=== PATIENT | female | born 1985 | race Caucasian/White ===

== ENCOUNTER 2022-04-02 14:59 | Emergency (ER) | payer BC, SELFPAY ==
[2022-04-02 15:05] VITALS: BP 144/92; PULSE 90; RESP 16; TEMP 36.8; O2SAT 100; BMI 18.1
--- NOTE | 2022-04-02 15:19 | ED_ITS ---
HPI - General Adult General Time Seen by Provider: 15:20 Date Seen: 04/02/22 Chief complaint: Unspecified Complaint, Adult Stated complaint: Varicose Vein-large/hard,lower back pain Time Seen by Provider: 04/02/22 15:07 Source: patient and RN notes reviewed Mode of arrival: ambulatory Limitations: no limitations History of Present Illness HPI narrative: Patient is a 36-year-old female coming in with concern of a hard varicose vein in her left genital area. She notes that she was told that she had varicose veins that developed with her 1st from the pelvic congestion. They went away after after her 2nd the developed again and then went away with delivery. After her 3rd they stated their on the left side. 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 This is where the abdominal aorta and superior mesenteric artery essentially squeeze the left renal vein. She states she has had complications of pelvic congestion and vascular issues because of this. She had noticed some increased low back pain recently. Her boyfriend is in [place] [facility] and she has not seen him nor had any interaction with him. She has had no fevers or chills, no concerning vaginal symptoms, no urinary symptoms. Yesterday when she was in [employer] she states her underwear were askew, she readjusted them and felt a little pain in the area. She was shaving in the perineum today and felt some pain doing it. She felt the left labia area and felt this varicose vein was harder but not necessarily larger. She states she has had this lesion or varicose vein in her perineum for about 15 years. She was told it was a varicose vein by her doctor. Related Data Allergies Allergy/AdvReac Type Severity Reaction Status Date / Time amoxicillin Allergy Severe Anaphylaxis Verified 04/02/22 16:26 clindamycin Allergy Severe Anaphylaxis Verified 04/02/22 16:26 latex Allergy Intermediate Blister Uncoded 04/02/22 16:26 Review of Systems Status of ROS: Reports: 6 or more systems reviewed and unremarkable except as noted in History and below PFSH PFS Social History Smoking Status: Smoker, status unknown Non-prescribed substance use: denies use Exam Const: Vital Signs, click to edit/add: Vital Signs - 24 hr 04/02/22 15:05 Temperature 98.3 F Pulse Rate [Pulse Oximeter] 90 Respiratory Rate 16 Blood Pressure [Ri ght Upper Arm] 144/92 H Pulse Oximetry 100 Oxygen Delivery Me thod Room Air Documenting provider has reviewed patient's vital signs: yes Common normals: no apparent distress, average body habitus, oriented x3, no limitations, healthy appearing, alert and well nourished General appearance: cooperative, comfortable and well kempt Nutritional appearance: thin HENMT: Common normals: normocephalic and head/scalp atraumatic Head and scalp: normocephalic and atraumatic Eye: Common normals: PERRL, EOMs intact bilaterally, conjunctivae normal and no scleral icterus Conjunctiva: conjunctiva(e) normal Pupil: PERRL Resp: Common normals: normal respiratory effort, no retractions, no use of accessory muscles and clear to auscultation bilaterally Auscultation: clear to auscultation bilaterally Cardio: Common normals: regular rate, regular rhythm, S1 normal heart sound, S2 normal heart sound, no gallops, no clicks and no murmurs Rate: regular rate Rhythm: regular rhythm Heart sounds: S1 normal and S2 normal GI: Common normals: Normal to inspection, nondistended, normoactive bowel sounds present, soft to palpation, non-tender, no hepatosplenomegaly and no masses Palpation: soft and no hepatosplenomegaly : Other: She has some bilateral small inguinal adenopathy, nothing even approaching 0.5 mm size. These are not fixed or matted, they are mobile and nontender. External genitalia are normal with the exception you get a faint sense of some fullness along the left posterior labia majora. Overlying the left labia you can see outlying of a darker vein but it is not significantly engorged it is not tender it is not showing any cord-like sense on palpation. At the base of the left labia majora there is about a larger grape size lesion within the labia. It is maybe mildly tender for her, it is firm. This would go along with what I feel is a Bartholin's cyst. There is no overlying erythema of the skin. She is not that extensively tender that I think this is an abscess at this time. Certainly could be a developing abscess but this is smaller. Neuro: Common normals: oriented x3 Sensorium/orientation: alert Psych: Appearance: well kempt Course Course Hospital Course: Reviewed with patient options. We did do a test she did want to go through doing the pelvic CT. She is worried that there could be some abnormal complication of her not cracker syndrome. I certainly think this is reasonable. I did speak with Dr. Chrissy Olmos our on-call OB. She agreed with observation and not draining it at this point. She typically will manage based on pain symptoms or if there is evidence of infection. She stated she could follow-up with the OB Gyne she sees or certainly is welcome to follow-up with them. I discussed options with patient and she would really like to proceed with doing the pelvic CT. Reevaluation(s) Reevaluation #1: Reviewed with patient her CT report. She actually has bilateral cystic lesions that would be consistent with Bartholin gland cyst. She notes that the left 1 has been bothering her with intercourse, bothers her during her menstrual cycle. The left 1 certainly probably has been present for quite some time given her history that she is reporting to me. This time I would recommend warm packs, conservative management with Tylenol and ibuprofen, pelvic rest and follow up with OB Gyne. Time: 17:14 Vital Signs Vital signs: Initial Vital Signs Temperature 98.3 F 04/02/22 15:05 Temperature Source Temporal Artery Scan 04/02/22 15:05 Pulse Rate 90 04/02/22 15:05 Pulse Rhythm 04/02/22 15:05 Respiratory Rate 16 04/02/22 15:05 Blood Pressure 144/92 H 04/02/22 15:05 Blood Pressure Mean 109 04/02/22 15:05 Blood Pressure Position Sitting 04/02/22 15:05 Pulse Oximetry 100 04/02/22 15:05 Oxygen Delivery Method 04/02/22 15:05 Vital Signs Temperature 98.3 F 04/02/22 15:05 Pulse Rate 90 04/02/22 15:05 Respiratory Rate 16 04/02/22 15:05 Blood Pressure 144/92 H 04/02/22 15:05 Pulse Oximetry 100 04/02/22 15:05 Oxygen Delivery Method 04/02/22 15:05 Temperature 98.3 F 04/02/22 15:05 Pulse Rate 90 04/02/22 15:05 Respiratory Rate 16 04/02/22 15:05 Blood Pressure 144/92 H 04/02/22 15:05 Pulse Oximetry 100 04/02/22 15:05 Oxygen Delivery Method 04/02/22 15:05 Medical Decision Making Lab Data Lab results reviewed: Yes I reviewed the patient's lab results Labs: Lab Results 04/02/22 Range/Units 15:40 Urine HCG, Qual Negative (Negative) Imaging Data CT- Other: Attestation: I have reviewed the pertinent imaging results. My impression: On her pelvis CT, I do see bilateral cystic lesions in the posterior labia. Certainly the left 1 is larger than the right. Await Radiology over-read. Radiologist's impression: Patient: CHRISTINE RIVERA Facility:?[facility] Patient ID:?[id number] Site Patient ID:?[id number]. Site :?[id number] Study:?CT Pelvis w/ Contrast-04/02/2022 4:30:17 PM Ordering Physician:Sharon Subramanian Final Report: Indication: Left labial mass. History of nutcracker syndrome. Technique: CT examination of pelvis was performed. Imaging was acquired from the umbilicus through the upper thighs. Imaging was acquired following the intravenous administration of 40 cc of Isovue 370. Sagittal and coronal reformatted imaging was performed. Please note that all CT scans at this facility use dose modulation, iterative reconstruction, and/or weight-based dosing when appropriate to reduce radiation dose to as low as reasonably achievable. Comparison: Every viewed portions of a CT dated March 28, 2018 though this did not include the entirety of the vulvar area Findings: The intrapelvic contents as visualized appear normal. The osseous structures normal. There are complex cystic lesions identified involving both labia at the introitus. The left is larger than the right. The left measures 2.5 by 2.2 x 2.3 centimeters containing internal debris. The right is substantially smaller and less complex measuring about 1.6 x 1.6 x 1.3 centimeters. There are several possible lesions that can occur in this area though the most likely is a Bartholin`s cyst. When complex, these are often infected. Impression: Bilateral complex cystic lesions associated with the labia at the enteritis as described. These are most likely Bartholin`s cysts. When complex, these are often currently or previously infected. Follow-up evaluation of these lesions is generally performed clinically. Please note that all CT scans at this facility use dose modulation, iterative reconstruction, and/or weight-based dosing when appropriate to reduce radiation dose to as low as reasonably achievable. Dictated by Ravindra Martin MD @ 04/02/2022 4:59:11 PM (Electronic Signature) Critical Care Time Critical Care Time Critical Care Time: No Discharge Plan Discharge Clinical Impression: Cyst of left Bartholin's gland, Cyst of right Bartholin's gland Condition: Stable Instructions: Bartholin Cyst (ED) Additional Instructions: Call [facility] at [phone] to get scheduled for a follow-up appointment. Let them know you were seen in the ER. Can use warm compresses, heating pad as you state you do not tolerate sitting in the tub. Certainly can use Tylenol and ibuprofen if needed for any discomfort. If either side starts to become increasingly swollen or painful, any redness overlying the skin, this could signify developing abscess and you should be re-evaluated in the interim. Activity Level: Activity as Tolerated Follow Up/Referrals: Provider,Not a Local [Primary Care Provider] - Stand Alone Forms: [employer] Info Instructions
--- NOTE | 2022-04-02 15:37 | CRLHL7_ITS ---
For Patients: As a result of the Century Cures Act, medical imaging exams and procedure reports are released immediately into your electronic medical record. You may view this report before your referring provider. If you have questions, please contact your health care provider. Indication: Left labial mass. History of nutcracker syndrome. Technique: CT examination of pelvis was performed. Imaging was acquired from the umbilicus through the upper thighs. Imaging was acquired following the intravenous administration of 40 cc of Isovue 370. Sagittal and coronal reformatted imaging was performed. Please note that all CT scans at this facility use dose modulation, iterative reconstruction, and/or weight-based dosing when appropriate to reduce radiation dose to as low as reasonably achievable. Comparison: Every viewed portions of a CT dated March 28, 2018 though this did not include the entirety of the vulvar area Findings: The intrapelvic contents as visualized appear normal. The osseous structures normal. There are complex cystic lesions identified involving both labia at the introitus. The left is larger than the right. The left measures 2.5 by 2.2 x 2.3 centimeters containing internal debris. The right is substantially smaller and less complex measuring about 1.6 x 1.6 x 1.3 centimeters. There are several possible lesions that can occur in this area though the most likely is a Bartholin`s cyst. When complex, these are often infected. Impression: Bilateral complex cystic lesions associated with the labia at the enteritis as described. These are most likely Bartholin`s cysts. When complex, these are often currently or previously infected. Follow-up evaluation of these lesions is generally performed clinically. Please note that all CT scans at this facility use dose modulation, iterative reconstruction, and/or weight-based dosing when appropriate to reduce radiation dose to as low as reasonably achievable. Dictated by Ravindra Martin MD @ 04/02/2022 4:59:11 PM (Electronically Signed)
[2022-04-02 15:54] LABS: Ur HCG Qualitative* Negative (Negative)
== END 2022-04-02 17:24 | disposition home or self-care (01) ==
PROVIDERS: Emergency Provider Family Medicine
DX: N75.0 Cyst of Bartholin's gland (principal)
CPT/HCPCS: 72193; 81025; 99284; Q9967

== ENCOUNTER 2022-05-28 11:28 | Emergency (ER) | payer BC, SELFPAY ==
[2022-05-28 12:34] VITALS: BP 99/64; PULSE 104; RESP 16; TEMP 36.7; O2SAT 99; BMI 18.5
--- NOTE | 2022-05-28 14:33 | ED.NURSE ---
Pt signed refusal of services. PT LWBS.
== END 2022-05-28 14:33 | disposition left against medical advice (07) ==
LOC: ED 14:29
DX: Z53.21 Procedure and treatment not carried out due to patient leaving prior to being seen by health care provider (principal)

== ENCOUNTER 2023-02-07 09:53 | Emergency (ER) | payer BC, SELFPAY ==
[2023-02-07 10:11] VITALS: BP 135/95; PULSE 95; RESP 20; TEMP 36.9; O2SAT 98
[2023-02-07 11:19] VITALS: BP 145/92; PULSE 76; RESP 16; O2SAT 98
--- NOTE | 2023-02-07 12:02 | ED_ITS ---
HPI - Skin/Abscess/Foreign Bdy General Chief complaint: Skin/Abscess/Foreign Body Stated complaint: Bartholins cyst Time Seen by Provider: 02/07/23 10:52 History of Present Illness HPI narrative: This 37-year-old female comes in with pain in the left vaginal labia and states that she has a history of a Bartholin gland cyst. Her pain is worse over the past day or 2. She states that she has never had this much pain in her previous symptoms. She states that she has difficulty sitting and walking and feels best when she is laying. She does not report any fevers. There is no report of any drainage. She was seen here previously with these same symptoms but less intense and at that time had a CT scan of her pelvis region which did show small bilateral Bartholin's gland cysts, left greater than right in size. Related Data Previous Rx's Medication Instructions Recorded cephalexin 500 mg capsule 500 mg PO TID 7 days #21 caps 02/07/23 hydrocodone 5 mg-acetaminophen 325 1 tab PO Q4-6H PRN pain #10 tabs 02/07/23 mg tablet Allergies Allergy/AdvReac Type Severity Reaction Status Date / Time Penicillins Allergy Severe Anaphylaxis Verified 04/07/22 15:09 clindamycin Allergy Intermediate Hives Verified 04/07/22 15:09 latex Allergy Intermediate [place] Verified 04/07/22 15:09 amoxicillin [From Augmentin] Allergy Mild Rash Verified 04/07/22 15:09 clavulanic acid Allergy Mild Rash Verified 04/07/22 15:09 [From Augmentin] clopidogrel [From Plavix] Allergy Mild Rash Verified 04/07/22 15:09 Review of Systems Status of ROS: Reports: 10 or more systems reviewed and unremarkable except as noted in History and below Narrative: Constitutional: No fevers, no weight gain or loss. Eyes: No discharge. No vision changes. HENT: No congestion, no sore throat, no ear pain. Cardiovascular: No chest pain, no palpitations. Respiratory: No shortness of breath, no wheezes, no cough. Gastrointestinal: No abdominal pain, no vomiting, no diarrhea. Genitourinary: No dysuria, no hematuria. Musculoskeletal: Normal range of motion. Skin: No rashes, no pruritis. Neurological: No dizziness, weakness, sensory change, speech change. Endo/Heme/Allergies: No bruising or bleeding. No polydipsia. Pysch: no suicidality, no anxiety, no insomnia. All other systems reviewed and are negative. 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 Smoking Status: Smoker, status unknown Second hand tobacco smoke exposure: No Non-prescribed substance use: marijuana (any form) service: No Exam Narrative: Exam Narrative: Constitutional: Well-developed, well-nourished, no acute distress. HEENT: Normocephalic, atraumatic. Neck: Normal range of motion. Nontender. Supple. Heart: Regular. No murmurs. Normal rate. Intact distal pulses. Lungs: Clear to auscultation. No chest discomfort. No wheezes, rhonchi, or rales. Abdomen: Normal bowel sounds. Nontender. No rebound tenderness. Genitalia: Painful swelling in the left posterior labia. There is no erythema or sign of drainage. Back: No midline tenderness. Normal range of motion. Extremities: Normal range of motion. No injury. Skin: Intact. No rash. Warm. No erythema or pallor. Neurologic: No altered sensation. No weakness. Alert and oriented. Psychiatric: No suicidality. No anxiety or depression. No insomnia. Nursing notes and vitals signs are reviewed. Const: Vital Signs, click to edit/add: Vital Signs - 24 hr 02/07/23 10:11 02/07/23 11:19 Temperature 98.5 F Pulse Rate [Pulse Oximeter] 95 76 Respiratory Rate 20 16 Blood Pressure [Ri ght Upper Arm] 135/95 H 145/92 H Pulse Oximetry 98 98 Oxygen Delivery Me thod Room Air Room Air Course Vital Signs Vital signs: Initial Vital Signs Temperature 98.5 F 02/07/23 10:11 Temperature Source Temporal Artery Scan 02/07/23 10:11 Pulse Rate 95 02/07/23 10:11 Pulse Rhythm Regular 02/07/23 10:11 Respiratory Rate 20 02/07/23 10:11 Blood Pressure 135/95 H 02/07/23 10:11 Blood Pressure Mean 108 H 02/07/23 10:11 Blood Pressure Position Standing 02/07/23 10:11 Pulse Oximetry 98 02/07/23 10:11 Oxygen Delivery Method Room Air 02/07/23 10:11 Vital Signs Temperature 98.5 F 02/07/23 10:11 Pulse Rate 95 02/07/23 10:11 Respiratory Rate 20 02/07/23 10:11 Blood Pressure 135/95 H 02/07/23 10:11 Pulse Oximetry 98 02/07/23 10:11 Oxygen Delivery Method Room Air 02/07/23 10:11 Temperature 98.5 F 02/07/23 10:11 Pulse Rate 76 02/07/23 11:19 Respiratory Rate 16 02/07/23 11:19 Blood Pressure 145/92 H 02/07/23 11:19 Pulse Oximetry 98 02/07/23 11:19 Oxygen Delivery Method Room Air 02/07/23 11:19 MDM - Skin/Abscess/Foreign Bdy MDM Narrative Medical decision making narrative: This patient comes in with a recurrence of a Bartholin's gland cyst that may represent an abscess. With a nurse present to assist, I did use bedside ultrasound to further evaluate the cyst which does appear to be present and loculated in nature. The patient is agreeable to attempt to aspirate fluid from this area. After anesthesia with 2% lidocaine I used a 21 gauge needle to a dvance into the cyst and was able to express proximally 2 mL of purulent fluid. This was sent to culture. The patient did receive a prescription for Keflex and a few tablets of [place]. I did advise her to follow-up with OBGYN clinic or possibly surgery Clinic if symptoms are recurrent or persistent. Discharge Plan Discharge Clinical Impression: Infected cyst of Bartholin's gland duct Patient Disposition: Home, Self-Care Condition: Improved Additional Instructions: Take medication as prescribed. Follow-up with OBGYN clinic as needed. Return if worsening. Prescriptions: New hydrocodone-acetaminophen 5-325 mg tablet 1 tab PO Q4-6H PRN (Reason: pain) Qty: 10 0RF cephalexin 500 mg capsule 500 mg PO TID 7 Days Qty: 21 0RF Follow Up/Referrals: Provider,Not a Local [Primary Care Provider] - Stand Alone Forms: [employer] Info Instructions
--- NOTE | 2023-02-07 12:18 | ED.NURSE ---
Patient discharged home with friend. 3ml of brown, cloudy fluid sent to lab for culture. Prescriptions sent into pt pharmacy. Follow up with OBGYN as needed. All questions answered. Left ambulatory with friend.
== END 2023-02-07 12:18 | disposition home or self-care (01) ==
LOC: ED 12:15
PROVIDERS: Emergency Provider Emergency Medicine Emergency Medical Services; PCP Physician Assistant
DX: N75.0 Cyst of Bartholin's gland (principal)
CPT/HCPCS: 10160; 87070; 87186; 99283; 99284

== ENCOUNTER 2023-02-10 18:08 | Emergency (ER) | payer BC, SELFPAY ==
[2023-02-10 18:13] VITALS: BP 125/57; PULSE 80; RESP 12; TEMP 36.7; O2SAT 100; BMI 17.0
--- OUTSIDE RECORDS SUMMARY | 2023-02-10 18:17 | XMS_ITS | Continuity of Care Document ---
Author Name Unknown Organization [facility] trisha Address [address] [place] [address] Phone Care Team Providers Care Software Lead Name Role Phone Will MD ARIAS, Jaime Unavailable Unavailabl e Advance Directives Directive Yes / No Effective Date File Name No Information Encounters Encounter Description Practice Location Reason(s) For Visit Diagnoses Date Provider Providers Copied on Encounter [facility], [address] [place] [address] [place], [place], [id number], [place] tel:[phone] [facility] No Information [facility]. [address] [place] [id number], [place]. tel:[phone] Family History Family Member Type Diagnosis Age At Onset No Information Payers Payer name Insurance type Covered constitution party ID Authoriza tion(s) No Information Social History Type Description Quantity Date Captured Comments Sex Female Smoking Status No Information Chief Complaint And Reason For Visit No Information Reason For Referral Reason For Referral No Information History Of Present Illness Encounter Date Complaint History Of Prese nt Illness No Information Functional Status Date Functional Assessmen t No Information Instructions Date Instruction Additional Infor mation No Information Assessments Type Assessment Date No Information Patient Care Teams Name Effective Dates (start - stop) Status Members No Information
--- NOTE | 2023-02-10 18:45 | ED.GENADULT ---
HPI - General Adult General Date Seen: 02/10/23 Chief complaint: Urogenital Problems, Female Stated complaint: Absess in bartholins gland-severe pain Time Seen by Provider: 02/10/23 18:10 Source: patient Mode of arrival: ambulatory Limitations: no limitations History of Present Illness HPI narrative: Patient is a 37-year-old woman who presents with persistent pain from a Bartholin's abscess. She was here few days ago, had an aspiration, fluid was sent for culture and has since grown out E coli which is sensitive to cephalosporins. She was placed on Keflex and she says she has been taking that as well as [place] but has continued pain. She has not had fevers although she has felt hot and cold. No vomiting or chills. Related Data Previous Rx's Medication Instructions Recorded cephalexin 500 mg capsule 500 mg PO TID 7 days #21 caps 02/07/23 hydrocodone 5 mg-acetaminophen 325 1 tab PO Q4-6H PRN pain #10 tabs 02/07/23 mg tablet Allergies Allergy/AdvReac Type Severity Reaction Status Date / Time Penicillins Allergy Severe Anaphylaxis Verified 04/07/22 15:09 clindamycin Allergy Intermediate Hives Verified 04/07/22 15:09 latex Allergy Intermediate [place] Verified 04/07/22 15:09 amoxicillin [From Augmentin] Allergy Mild Rash Verified 04/07/22 15:09 clavulanic acid Allergy Mild Rash Verified 04/07/22 15:09 [From Augmentin] clopidogrel [From Plavix] Allergy Mild Rash Verified 04/07/22 15:09 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 Smoking Status: Smoker, status unknown Second hand tobacco smoke exposure: No Non-prescribed substance use: marijuana (any form) service: No Exam Narrative: Exam Narrative: Vital signs reviewed In general, an alert woman, nontoxic. : On the left posterior labia there is a firm tender swelling consistent with abscess. There is no significant surrounding erythema. I can see a previous puncture from where it was aspirated. There is no drainage at this time. Const: Vital Signs, click to edit/add: Vital Signs - 24 hr 02/10/23 18:13 Temperature 98.1 F Pulse Rate [Pulse Oximeter] 80 Respiratory Rate 12 Blood Pressure [Le ft Upper Arm] 125/57 L Pulse Oximetry 100 Oxygen Delivery Me thod Room Air Documenting provider has reviewed patient's vital signs: yes Course Course ED Course: Procedure note: I recommended I&D followed by word catheter placement. Attempted to put in local anesthetic, a she was not able to hold still for this, she said it was too painful. Plan at this time is to place some let, will give her mg of Ativan orally, and try again. Second attempt was more successful, area overlying the abscess was anesthetized using lidocaine with epinephrine, I made a stab incision and drained a small amount of pus. I attempted to place a Word catheter, but the cavity does not seem to be large enough right now, as balloon inflates the catheter just pops out. Will have her do warm soaks, continue her antibiotic, she requests more [place] as she only has 3 left. I gave her four additional pills. Reviewing culture result, she grew out an E coli which was resistant to penicillins, fluoroquinolones, Bactrim. I do think Keflex is a reasonable choice for her. Return for fevers, chills, other symptoms of systemic infection. Otherwise, I have asked her to follow-up with [facility] in a couple of days for recheck. Vital Signs Vital signs: Initial Vital Signs Temperature 98.1 F 02/10/23 18:13 Temperature Source Temporal Artery Scan 02/10/23 18:13 Pulse Rate 80 02/10/23 18:13 Pulse Rhythm Regular 02/10/23 18:13 Respiratory Rate 12 02/10/23 18:13 Blood Pressure 125/57 L 02/10/23 18:13 Blood Pressure Mean 79 02/10/23 18:13 Blood Pressure Position Supine 02/10/23 18:13 Pulse Oximetry 100 02/10/23 18:13 Oxygen Delivery Method Room Air 02/10/23 18:13 Vital Signs Temperature 98.1 F 02/10/23 18:13 Pulse Rate 80 02/10/23 18:13 Respiratory Rate 12 02/10/23 18:13 Blood Pressure 125/57 L 02/10/23 18:13 Pulse Oximetry 100 02/10/23 18:13 Oxygen Delivery Method Room Air 02/10/23 18:13 Temperature 98.1 F 02/10/23 18:13 Pulse Rate 80 02/10/23 18:13 Respiratory Rate 12 02/10/23 18:13 Blood Pressure 125/57 L 02/10/23 18:13 Pulse Oximetry 100 02/10/23 18:13 Oxygen Delivery Method Room Air 02/10/23 18:13 Discharge Plan Discharge Clinical Impression: Abscess of Bartholin's gland Patient Disposition: Home, Self-Care Condition: Stable Instructions: Abscess Follow-up (ED), Incision and Drainage (ED) Additional Instructions: Continue your antibiotics. Ibuprofen 400 mg 3 times daily. [place] if needed for ongoing pain. Please follow-up with [facility] in the next couple of days for a recheck. Warm soaks several times a day. Prescriptions: No Action hydrocodone-acetaminophen 5-325 mg tablet 1 tab PO Q4-6H PRN (Reason: pain) Qty: 10 0RF cephalexin 500 mg capsule 500 mg PO TID 7 Days Qty: 21 0RF Follow Up/Referrals: Amanda Navarro PA-C [Primary Care Provider] - Stand Alone Forms: [facility] Info Instructions
[2023-02-10] MEDS: LIDOCAINE/EPINEP/TETRACAINE 3 ML GEL..ML. TOPICAL (18:47)
[2023-02-10] MEDS: LORazepam 1 MG TABLET PO (18:51)
--- OUTSIDE RECORDS SUMMARY | 2023-02-10 18:52 | XMS_ITS | Continuity of Care Document ---
Author Name Unknown Organization [facility] trisha Address [address] [place] [address] Phone Care Team Providers Care Electrical Sign Servicer Name Role Phone Will MD ARIAS, Jaime Unavailable Unavailabl e Advance Directives Directive Yes / No Effective Date File Name No Information Encounters Encounter Description Practice Location Reason(s) For Visit Diagnoses Date Provider Providers Copied on Encounter [facility], [address] [place] [address] [place], [place], [id number], [place] tel:[phone] [facility] No Information Will [facility]. [address] [place] [id number], [place]. tel:[phone] Family History Family Member Type Diagnosis Age At Onset No Information Payers Payer name Insurance type Covered democrat ID Authoriza tion(s) No Information Social History [...]
== END 2023-02-10 19:50 | disposition home or self-care (01) ==
PROVIDERS: Emergency Provider Emergency Medicine; PCP Physician Assistant
DX: N75.1 Abscess of Bartholin's gland (principal)
CPT/HCPCS: 56420; 99283; 99284; A9270